=== PATIENT | male | born 1970 | race Caucasian/White ===

== ENCOUNTER 2020-08-02 01:33 | Inpatient (IN) | payer OTHER, SELFPAY ==
[2020-08-02] MEDS ORDERED: Morphine 4 MG/ML VIAL ONE (02:00)
[2020-08-02] MEDS ORDERED: Ondansetron PF 4 MG/2 ML Vial IVP PRN ×2 (02:32→04:23)
[2020-08-02] MEDS ORDERED: Acetaminophen 325 MG TAB PO PRN ×2 (02:32→04:23)
[2020-08-02] MEDS ORDERED: Ketorolac Tromethamine 30 MG/ML VIAL IVP PRN ×2 (02:38→04:24)
[2020-08-02] MEDS ORDERED: Cefepime 2 GM in Sodium Chloride 0.9% 100 ML IVPB SCH ×2 (03:00→16:00)
[2020-08-02] MEDS ORDERED: Sodium Chloride 0.9% 1,000 ML IV SCH (03:00)
[2020-08-02 03:19] LABS: #Basophils 0.1 thou/uL (0.0-0.2); #Lymphocytes 2.7 thou/uL (1.20-3.40); #Monocytes 1.2 thou/uL (0.11-0.59); %Basophils 0.3 % (0.0-1.0); %Eosinophils 0.2 % (0.0-10.0); %Lymphocytes 15.2 % (21.0-51.0); %Monocytes 6.4 % (0.0-10.0); %Neutrophils 77.9 % (42.0-75.0); Hemoglobin 12.2 g/dL (14.0-18.0); Mean Corpuscular HGB CONC 33.8 g/dL (32.0-36.0); Mean Corpuscular Hemoglobin 31.7 pg (27.0-31.0); Mean Platelet Volume 8.1 fL (7.4-10.4); Platelet Count 321 thou/uL (130-400); RBC Distribution Width 12.3 % (11.5-14.5); Red Blood Cell (RBC) Count 3.84 mill/uL (4.70-6.10)
--- NOTE | 2020-08-02 03:19 | PDOC.EVN ---
Event Note - Event Note Event Note: [id number] HP dictated
--- NOTE | 2020-08-02 03:38 | HP ---
CHIEF COMPLAINT: Right flank pain and hematuria. HISTORY OF PRESENT ILLNESS: Mr. Jason is a 50-year-old male, who has been transferred to our medical facility from an outside emergency room, presented to the emergency room due to right flank pain and right lower quadrant abdominal pain that has been intermittent over the last 24 hours. Patient has a history of prior kidney stones. He said he has been feeling nauseated but no vomiting. Denies fever. Workup in the emergency room, patient was found to have elevated WBC count of 21,000. Elevated lactic acid, more than 4. Also, he was found to be hyperglycemic. Denies any prior history of diabetes. CT abdomen and pelvis did not show any evidence of kidney stones. Patient initially was tachycardic on arrival to the emergency room and he remained tachycardic after adequate pain relief. Prior to transfer, he received 3 L of normal saline, IV Rocephin, and vancomycin for possible sepsis. Patient has a history of coronary artery disease, cardiac stents. He takes statin for hyperlipidemia. Denies taking any blood thinners. PAST MEDICAL HISTORY: 1. Myocardial infarction/coronary artery disease. 2. Hypertension. 3. Hyperlipidemia. 4. Kidney stones. PAST SURGICAL HISTORY: 1. Two cardiac stents. 2. Cholecystectomy. PAST PSYCHIATRIC HISTORY: PTSD. SOCIAL HISTORY: He currently smokes cigarettes, less than half pack a day. FAMILY HISTORY: Reviewed and noncontributory. HOME MEDICATIONS: Please see home medication reconciliation form for updated medications. ALLERGIES: NO KNOWN ALLERGIES. REVIEW OF SYSTEMS: Review of 14 systems negative, except what is mentioned in history of present illness. PHYSICAL EXAMINATION: GENERAL: Patient is awake, alert, in moderate distress. VITAL SIGNS: Blood pressure 140/84, pulse is 95, respiratory rate is 16, temperature is 98.2, and oxygen saturation is 98% on room air. HEAD AND NECK: Normocephalic and atraumatic. NECK: Supple. CHEST: Fair bilateral air entry. HEART: S1, S2. Regular. Tachycardic. ABDOMEN: Soft with right flank and right lower quadrant tenderness. NEUROLOGIC: Awake, alert, and oriented x3. PSYCH: Normal mood. EXTREMITIES: No clubbing or cyanosis. LABORATORY DATA: WBC count 22,400, hemoglobin 14.4, and platelets 373. Sodium is 143, potassium 3.4, BUN is 18, creatinine 1.1, and glucose is 247. Lactic acid is 4.2. Repeat lactic acid is 1.7. ASSESSMENT: 1. Sepsis, suspected? 2. Hematuria. 3. History of kidney stones. 4. History of cardiac stents. 5. Coronary artery disease. 6. Hypertension. 7. Cigarette smoker. PLAN: 1. Admit. 2. Septic workup done in the ED. 3. Continue with IV antibiotics for now, reassess in a.m. 4. Continue IV fluids. 5. Consider Urology consultation in the a.m. for evaluation and further recommendations. 6. Pain management. 7. Reconcile home medications. 8. DVT prophylaxis as appropriate. 9. Expected length of stay, 2 midnights or more. Job ID: [id number]
[2020-08-02 03:54] LABS: Vancomycin, Trough 27.4 ug/mL
[2020-08-02 03:56] LABS: ALT (SGPT) 24 U/L (8-55); AST (SGOT) 31 U/L (5-34); Albumin 3.9 g/dL (3.5-5.0); Alkaline Phosphatase 63 U/L (40-110); Anion Gap 14 mmol/L (10-20); BUN (Urea Nitrogen) 15 mg/dL (8.9-20.6); Bilirubin, Total 0.3 mg/dL (0.2-1.2); Calc. Creatinine Clearance 0 mL/min (70-130); Carbon Dioxide 17 mmol/L (22-29); Chloride 113 mmol/L (98-107); Estimated GFR-MDRD Greater than 90; Globulin 2.9 g/dL (2.4-3.5); Glucose 113 mg/dL (70-105); Potassium 3.6 mmol/L (3.5-5.1); Protein, Total 6.8 g/dL (6.0-8.3); Sodium 140 mmol/L (136-145)
[2020-08-02 04:00] LABS: Troponin I Less than 0.010 ng/mL (< 0.028)
[2020-08-02 04:14] VITALS: BMI 27.3
[2020-08-02] MEDS ORDERED: Morphine 2 MG/ML VIAL SLOW IVP SCH (04:30)
[2020-08-02] MEDS ORDERED: FLU VACC QS2020-21(6MOS UP)/PF 60 MCG/0.5 ML SYRINGE IM ONE ×2 (04:30→09:00)
[2020-08-02] MEDS ORDERED: Vancomycin 1 GM in Premix Bag 1 BAG IVPB SCH (06:00)
[2020-08-02 07:19] VITALS: BP 104/64; TEMP 97.6
[2020-08-02] MEDS ORDERED: Vancomycin HCl 1 GM in Sodium Chloride 0.9% 250 ML 300 ML IVPB SCH (09:00)
[2020-08-02] MEDS ORDERED: Ibuprofen 200 MG TAB PO PRN (10:38)
[2020-08-02] MEDS ORDERED: Ibuprofen 200 MG TAB PO SCH ×2 (10:45→21:00)
[2020-08-02 13:19] LABS: SARS-CoV-2 MS2 Positive; SARS-CoV-2 N Gene Negative; SARS-CoV-2 S Gene Negative; SARS-CoV-2 by NAA Not Detected (NotDetected); SARS-CoV-2 orf1ab Negative
--- NOTE | 2020-08-02 16:37 | DIS ---
DATE OF ADMISSION: 08/02/2020 DATE OF DISCHARGE: 08/02/2020 DATE OF DISCHARGE: The patient signed out against advice on 08/02/2020. PRIMARY DISCHARGE DIAGNOSES: Sepsis, possible urinary tract infection, right lower quadrant abdominal pain, history of hypertension, dyslipidemia, history of nephrolithiasis, coronary artery disease in the past with 2 stents. PROCEDURES DONE DURING HOSPITALIZATION: Abdominal and pelvic CAT scan done showed no urinary tract calculi or obstruction. Appendix was identified and appeared normal on the CAT scan. BUN 15, creatinine 0.8, serum bicarb 17, albumin 3.9. Initial lactic acid was 4.2. White count of 22 on admission, hemoglobin and hematocrit 12 and 36, platelet count 321 with 77% neutrophils. UA showed trace ketones, large blood, greater than 50 rbc's, nitrite and leukocyte esterase were negative, rare few bacteria seen. COVID-19 PCR was not detected on 08/02/2020. DISCHARGE MEDICATIONS: 1. Atorvastatin 80 mg p.o. at bedtime. 2. Ciprofloxacin 500 mg p.o. twice daily for 1 week. BRIEF COURSE DURING HOSPITALIZATION: The patient initially came to ER with complaints of right flank pain and high colored urine. The patient had prior history of kidney stones and a CT abdomen and pelvis was done. This did not reveal any stones in the urinary tract. There was no inflammation of appendix either. The patient had elevated white count of around 22. He was suspected to have sepsis with possible urinary tract infection in view of his pain and tenderness in the right flank with pain around the epididymis area. He was given IV fluids and was admitted to telemetry. This morning, the patient did not want to stay because of his [place] and had financial worries staying here. He wanted to go to [facility] and follow up with his primary care physician. In view of the patient's request for antibiotics, I have given him a prescription for ciprofloxacin. The patient is advised to go to the nearest emergency room if he were to develop worsening pain or fever or any new symptoms. He is clearly aware of this. His blood cultures, even the preliminary cultures have not resulted yet. The antibiotic prescription was given purely on humanitarian basis as the patient requested one. Please note, I have seen and examined the patient on the day of discharge. Job ID: [id number]
== END 2020-08-02 12:06 | disposition left against medical advice (07) | DRG 872 ==
LOC: ERS 01:33 → 2NO 02:32 → ERS 03:15 → 2NO 03:57
PROVIDERS: ADMIT Internal Medicine; ATTEND Internal Medicine
DX: A41.9 Sepsis, unspecified organism (principal); E87.2 Acidosis; Z23 Encounter for immunization; N39.0 Urinary tract infection, site not specified; R73.9 Hyperglycemia, unspecified; I10 Essential (primary) hypertension; E78.00 Pure hypercholesterolemia, unspecified; F43.10 Post-traumatic stress disorder, unspecified; F17.210 Nicotine dependence, cigarettes, uncomplicated; I25.10 Atherosclerotic heart disease of native coronary artery without angina pectoris; E78.5 Hyperlipidemia, unspecified; Z20.828 Contact with and (suspected) exposure to other viral communicable diseases; Z87.442 Personal history of urinary calculi; I25.2 Old myocardial infarction; Z95.5 Presence of coronary angioplasty implant and graft; Z90.49 Acquired absence of other specified parts of digestive tract
CPT/HCPCS: 36415; 36416; 80053; 80202; 83605; 84484; 85025; 87040; 87086; 87635; 90471; 90662; G0008; J0692; J2270; J3370; J3490; U0003